=== PATIENT | male | born 1950 | race Caucasian/White ===

== ENCOUNTER 2020-09-11 15:57 | Emergency (ER) | payer MEDICARE, BC ==
--- NOTE | 2020-09-11 16:38 | ED.PDOC ---
History of Present Illness - General Chief Complaint: Respiratory Problem Time Seen by Provider: 09/11/20 16:31 Additional Information: Patient is a 70-year-old male who presents to the ED with chief complaint of persistent Covid symptoms. Patient was diagnosed with Covid 8 days ago. For the past 9 to 10 days patient has had low-grade fever, mild frontal headache, fatigue, slight muscle aches, chest congestion, occasional dry cough, and mild shortness of breath. Patient denies chest pain. Patient has factor V Leiden deficiency and takes Coumadin daily and he indicates he has not missed any doses. Patient also has polymyalgia rheumatica. Patient has a home oxygen saturation monitor and indicates that his ambulatory O2 sats were 94%. Patient is otherwise asymptomatic. - History of Present Illness Allergies/Adverse Reactions: Allergies NO KNOWN ALLERGY Allergy (Verified 09/11/20 16:48) Home Medications: Ambulatory Orders Acetaminophen [Tylenol] 650 mg PO Q6H #50 tab 09/11/20 Albuterol Inhaler [Ventolin Hfa Inhaler] 2 puff INH Q4H PRN #1 inh 09/11/20 Review of Systems - Review of Systems Constitutional: States: fever, weakness EENTM: States: no symptoms reported Respiratory: States: cough, short of breath Cardiology: States: no symptoms reported. Denies: chest pain, palpitations Gastrointestinal/Abdominal: States: no symptoms reported. Denies: abdominal pain, nausea, vomiting Genitourinary: States: no symptoms reported. Denies: dysuria Musculoskeletal: States: muscle pain Skin: States: no symptoms reported. Denies: rash Neurological: States: headache All other Systems: Reviewed and Negative Family Medical History - Family History Mother Family History: No Known Living Status: Physical Exam - Physical Exam General Appearance: Alert, Comfortable, No apparent distress, Well Developed, Well Nourished ENT Exam: normal ENT inspection, pharynx normal Neck: supple, normal inspection Respiratory: chest non-tender, lungs clear, normal breath sounds, no respiratory distress, no accessory muscle use Cardiovascular/Chest: normal peripheral pulses, regular rate, rhythm, no edema, no gallop, no JVD, no murmur Gastrointestinal/Abdominal: normal bowel sounds, non tender, soft, no organomegaly, no pulsatile mass Extremity: normal range of motion, non-tender Neurologic: water use inspector II-XII nml as tested, no motor/sensory deficits, alert, normal mood/affect, oriented x 3 Skin Exam: normal color, warm/dry Progress - Progress Progress: 09/11/20 16:41 Differential diagnosis includes but is not limited to Covid, pneumonia, bronchitis, electrolyte disorder 09/11/20 17:23 EKG: Normal sinus rhythm, rate 60, left axis deviation, normal QRS, nonspecific T wave changes, normal ST segment, negative STEMI. 09/11/20 17:58 Patient reassessed and he is feeling well. Patient's labs are unremarkable and his chest x-ray is clear. Patient is known Covid positive but his oxygen levels on room air are acceptable and patient should do well recovering at home and does not require hospital admission. I discussed this plan with patient who is in agreement and is happy with continuing to rest and following up with his doctor. Vital signs stable, patient is NAD and looks clinically well and I believe is safe for discharge with outpatient follow-up. Follow-up instructions, discharge instructions and return to ED precautions discussed with patient. Patient voices understanding and willingness to comply with instructions. All laboratory and/or radiographic results have been discussed with the patient, and all questions answered. Patient is happy with plan. Departure - Departure Clinical Impression: COVID-19 Time of Disposition: 18:01 Disposition: Discharge to Home or Self Care Condition: Good Departure Forms: ED Discharge - Pt. Copy, Patient Portal Self Enrollment Referrals: JEFF QUINTERO MD [Active Staff] - 1-5 Days Prescriptions: Acetaminophen [Tylenol] 650 mg PO Q6H #50 tab Albuterol Inhaler [Ventolin Hfa Inhaler] 2 puff INH Q4H PRN #1 inh PRN Reason: Shortness Of Breath/Wheezing Home Medications: Ambulatory Orders Acetaminophen [Tylenol] 650 mg PO Q6H #50 tab 09/11/20 Albuterol Inhaler [Ventolin Hfa Inhaler] 2 puff INH Q4H PRN #1 inh 09/11/20
[2020-09-11 16:48] VITALS: BP 162/94
--- NOTE | 2020-09-11 16:55 | RAD ---
EXAM: Chest,1 View CLINICAL INDICATION: Cellulitis COMPARISON: There is no previous study for comparison. FINDINGS: A single view of the chest was obtained. The heart size is normal. The pulmonary vascularity is unremarkable. The lungs are clear. There is no consolidation, infiltrate, pleural effusion, or pneumothorax. IMPRESSION: No evidence of active pulmonary disease. Electronically signed by: Oscar Parsons MD 09/11/2020 4:53 PM [facility]
[2020-09-11 18:58] VITALS: TEMP 98.7; O2SAT 94
== END 2020-09-11 18:20 | disposition home or self-care (01) ==
LOC: ER 15:57
DX: U07.1 COVID-19 (principal); D68.51 Activated protein C resistance; M35.3 Polymyalgia rheumatica; Z79.01 Long term (current) use of anticoagulants

== ENCOUNTER 2020-09-14 10:11 | Emergency (ER) | payer MEDICARE, BC ==
--- NOTE | 2020-09-14 13:01 | ED.PDOC ---
History of Present Illness - General Chief Complaint: Respiratory Problem Time Seen by Provider: 09/14/20 13:01 - History of Present Illness Comments: 70-year-old male positive past medical history of factor V Leyden deficiency and polymyalgia rheumatica presents to ED complaining of intermittent hypoxia and cough from known COVID-19. Patient has been symptomatic for 11 days and was tested positive for COVID-19 10 days ago. Patient was evaluated by Dr. Dykes today and sent to ED for evaluation. Patient states at home his O2 saturation dropped down to 90% on room air but quickly came up and that was noted after he woke up from his night sleep. At this time patient is denying any shortness of breath but does have some chest tightness without chest pain. Is associated headache, fatigue, nausea without vomiting, nasal congestion. Denies history of similar symptoms. Denies alleviating/aggravating factors. He has no other signs, symptoms, complaints at this time. Allergies/Adverse Reactions: Allergies NO KNOWN ALLERGY Allergy (Verified 09/11/20 16:48) Home Medications: Ambulatory Orders Acetaminophen [Tylenol] 650 mg PO Q6H #50 tab 09/11/20 Albuterol Inhaler [Ventolin Hfa Inhaler] 2 puff INH Q4H PRN #1 inh 09/11/20 Azithromycin [Zithromax Z-Chinedu] 250 mg PO DAILY 5 Days #6 tab 09/14/20 Cholecalciferol [Vitamin D] 5,000 unit PO DAILY 30 Days #30 cap 09/14/20 Ondansetron HCl [Zofran] 4 mg PO TID PRN #15 tab 09/14/20 Zinc 50 mg PO BID #60 tab 09/14/20 Review of Systems - Review of Systems Constitutional: States: chills, other - fatigue. Denies: diaphoresis, fever EENTM: States: nose congestion. Denies: throat pain Respiratory: States: cough. Denies: short of breath Cardiology: States: other - chest tightness without pain Gastrointestinal/Abdominal: States: nausea. Denies: abdominal pain, c onstipation, diarrhea, vomiting Genitourinary: Denies: dysuria, frequency Musculoskeletal: Denies: muscle pain, neck pain Skin: Denies: change in color, rash Neurological: States: headache, other - no dizziness Hematologic/Lymphatic: Denies: easy bruising Past Medical History (General) - Patient Medical History Hx Stroke: No Hx Cardiac Disorders: No Hx Congestive Heart Failure: No Hx Hypertension: No Hx Diabetes: No Hx Gastroesophageal Reflux: Yes Hx Cancer: Yes - skin - Vaccination History Hx Influenza Vaccination: Yes Hx Pneumococcal Vaccination: Yes - Social History Hx Tobacco Use: Yes Hx Alcohol Use: Yes Hx Substance Use: No Hx Substance Use Treatment: No Hx Depression: No - Female History Patient : No Family Medical History - Family History Mother Family History: No Known Living Status: Physical Exam - Physical Exam General Appearance: Alert, Comfortable, No apparent distress Eye Exam: bilateral normal, bilateral other - no scleral icterus bilterally ENT Exam: normal ENT inspection Neck: full range of motion, supple, normal inspection Respiratory: lungs clear, normal breath sounds, no respiratory distress, no accessory muscle use Cardiovascular/Chest: regular rate, rhythm, no edema, no gallop, no JVD, no murmur Gastrointestinal/Abdominal: normal bowel sounds, non tender, soft, no pulsatile mass, other - no rebound, no guarding, no peritoneal signs, no CVA TTP bilaterally Extremity: non-tender, normal inspection, no pedal edema Neurologic: alert, normal mood/affect, oriented x 3 Skin Exam: normal color, warm/dry, other - no rash Progress - Progress Progress: Jules Cavanaugh DO Emergency Medicine Physician [employer] [id number] Appropriate PPE of surgical mask, gown, gloves, and eye protection (if encounter >5 minutes) utilized with every patient encounter; in accordance with hospital policy. Presents for COVID19 infection with likely COVID19 pneumonia. No hypoxia on room air and no respiratory distress on presentation. I will perform imaging, EKG, labs, provide appropriate pharmacotherapy, and continue to monitor/reassess. Dispo will depend on imaging, ekg, and lab results and overall course in ED; how ever, discharge home is expected with f/u, education, and possible rx. 15:51 Rechecked pt. NAD, VSS, resting comfortably in bed. O2 saturation with good wave form while talking is 95-98% on room air. I have discussed radiology results, lab results, my clinical impression, and diagnosis. I have also discussed plan for discharge home with f/u, education, and prescription medications. ED return precautions provided. Pt voices understanding, agrees with plan, and all questions answered. Remdesivir administered in the ED. - Results/Orders Results/Orders: 09/14/20 13:12 IV Care:Saline Lock per Protoc QSHIFT IV:Start .ONCE 09/14/20 13:15 EKG STAT 09/14/20 13:25 LACTIC ACID Stat Laboratory Results - last 24 hr 09/14/20 09/14/20 09/14/20 13:25 13:25 13:25 WBC 3.5 L RBC 4.82 Hgb 14.6 Hct 43.1 MCV 89.5 MCH 30.2 MCHC 33.8 RDW 13.0 Plt Count 183 MPV 7.8 Absolute Neuts (auto) 2.10 Absolute Lymphs (auto) 1.10 Absolute Monos (auto) 0.30 Absolute Eos (auto) 0.00 Absolute Basos (auto) 0.00 Neutrophils % 60.5 Lymphocytes % 30.2 Monocytes % 8.8 Eosinophils % 0.0 L Basophils % 0.5 PT INR D-Dimer, Quantitative < 131.0 L Sodium 135 Potassium 3.7 Chloride 101 Carbon Dioxide 25 Anion Gap 12.7 BUN 17 Creatinine 0.86 BUN/Creatinine Ratio 19.8 Random Glucose 132 H Serum Osmolality 273.5 L Calcium 8.1 L Total Bilirubin 0.9 AST 30 ALT 27 Alkaline Phosphatase 65 Troponin I B-Natriuretic Peptide 24.1 Serum Total Protein 7.3 Albumin 3.6 Globulin 3.7 H Albumin/Globulin Ratio 1.0 L 09/14/20 09/14/20 13:25 13:25 WBC RBC Hgb Hct MCV MCH MCHC RDW Plt Count MPV Absolute Neuts (auto) Absolute Lymphs (auto) Absolute Monos (auto) Absolute Eos (auto) Absolute Basos (auto) Neutrophils % Lymphocytes % Monocytes % Eosinophils % Basophils % PT 15.3 H INR 1.55 H D-Dimer, Quantitative Sodium Potassium Chloride Carbon Dioxide Anion Gap BUN Creatinine BUN/Creatinine Ratio Random Glucose Serum Osmolality Calcium Total Bilirubin AST ALT Alkaline Phosphatase Troponin I < 0.02 B-Natriuretic Peptide Serum Total Protein Albumin Globulin Albumin/Globulin Ratio EXAM DESCRIPTION: Chest,1 View CLINICAL HISTORY: 70 years Male, SOB, cough, COVID19 COMPARISON: Previous chest x-ray September 11, 2020 TECHNIQUE: AP portable chest. FINDINGS: Heart size is normal with normal pulmonary vascularity. No consolidating infiltrate. No pulmonary mass or worrisome nodule. No pneumothorax or pleural effusion. Bones are unremarkable. IMPRESSION: No acute process is identified in the chest. Electronically signed by: Eros Devi MD 09/14/2020 2:16 PM [employer] Vital Signs - 24 hr 09/14/20 09/14/20 09/14/20 10:18 13:13 14:13 Temperature 98.1 F Pulse Rate [ 69 72 72 left brachial] Respiratory 22 18 17 Rate Blood Pressure 149/77 149/77 134/68 [left brachial] O2 Sat by Pulse 97 97 93 L Oximetry 09/14/20 09/14/20 09/14/20 15:00 16:00 17:00 Temperature Pulse Rate [ 67 74 76 left brachial] Respiratory 17 20 23 Rate Blood Pressure 135/68 124/91 141/74 [left brachial] O2 Sat by Pulse 94 L 95 94 L Oximetry - EKG/XRAY/CT EKG: Sinus, nonspecific ST T wave Chg Comments: @1324: NSR @75, left axis, intervals wnl, no NELSON or depressions, no STEMI Departure - Departure Clinical Impression: Polymyalgia rheumatica, Factor V Leiden, Subtherapeutic anticoagulation, COVID- 19 virus infection Time of Disposition: 15:41 Disposition: Discharge to Home or Self Care Condition: Fair Departure Forms: ED Discharge - Pt. Copy, Patient Portal Self Enrollment Instructions: Coronavirus Disease 2019 (COVID-19) (DC) Diet: resume usual diet Referrals: Donis Ray [Other] - 09/15/20 (They will call you in the morning to check on your condition ) [facility], Emergency Department [Other] (Return to ED as needed or if symptoms worsen or if you develop any other symptoms concerning to you. ) Prescriptions: Cholecalciferol [Vitamin D] 5,000 unit PO DAILY 30 Days #30 cap Zinc 50 mg PO BID #60 tab Azithromycin [Zithromax Z-Chinedu] 250 mg PO DAILY 5 Days #6 tab Ondansetron HCl [Zofran] 4 mg PO TID PRN #15 tab PRN Reason: Nausea/Vomiting Home Medications: Ambulatory Orders Acetaminophen [Tylenol] 650 mg PO Q6H #50 tab 09/11/20 Albuterol Inhaler [Ventolin Hfa Inhaler] 2 puff INH Q4H PRN #1 inh 09/11/20 Azithromycin [Zithromax Z-Chinedu] 250 mg PO DAILY 5 Days #6 tab 09/14/20 Cholecalciferol [Vitamin D] 5,000 unit PO DAILY 30 Days #30 cap 09/14/20 Ondansetron HCl [Zofran] 4 mg PO TID PRN #15 tab 09/14/20 Zinc 50 mg PO BID #60 tab 09/14/20
--- NOTE | 2020-09-14 14:18 | RAD ---
EXAM DESCRIPTION: Chest,1 View CLINICAL HISTORY: 70 years Male, SOB, cough, COVID19 COMPARISON: Previous chest x-ray September 11, 2020 TECHNIQUE: AP portable chest. FINDINGS: Heart size is normal with normal pulmonary vascularity. No consolidating infiltrate. No pulmonary mass or worrisome nodule. No pneumothorax or pleural effusion. Bones are unremarkable. IMPRESSION: No acute process is identified in the chest. Electronically signed by: Eros Devi MD 09/14/2020 2:16 PM [facility]
[2020-09-14] MEDS ORDERED: REMDESIVIR 200 MG in SODIUM CHLORIDE 0.9% 250ML 250 ML IVPB STA (15:40)
[2020-09-14] MEDS ORDERED: ONDANSETRON ODT 8 MG TAB SL ONE (15:54)
[2020-09-14] MEDS ORDERED: ONDANSETRON INJ 4 MG/2 ML VIAL ONE (18:31)
[2020-09-14] MEDS ORDERED: ONDANSETRON INJ 4 MG/2 ML VIAL IV ONE (18:49)
[2020-09-14 19:33] VITALS: BP 133/78; TEMP 101.2; O2SAT 95
== END 2020-09-14 19:34 | disposition home or self-care (01) ==
LOC: ER 10:11
DX: U07.1 COVID-19 (principal); M35.3 Polymyalgia rheumatica; D68.51 Activated protein C resistance; R79.1 Abnormal coagulation profile; R07.89 Other chest pain; K21.9 Gastro-esophageal reflux disease without esophagitis; Z79.01 Long term (current) use of anticoagulants; Z85.828 Personal history of other malignant neoplasm of skin; Z87.891 Personal history of nicotine dependence
CPT/HCPCS: 71045; 80053; 83880; 84484; 85025; 85379; 85610; 93005; J2405; J7050